=== PATIENT | female | born 2000 ===

== ENCOUNTER 2024-01-06 10:21 | Inpatient (IN) ==
[2024-01-06] MEDS ORDERED: ACETAMINOPHEN 325 MG TAB PO PRN (10:58)
[2024-01-06] MEDS ORDERED: SODIUM CHLORIDE 0.65% NA SOLN 45 ML (OCEAN) PRN (10:58)
[2024-01-06] MEDS ORDERED: ALUMINUM/MAGNESIUM SUSP 30 ML UDC PO PRN (10:58)
[2024-01-06] MEDS ORDERED: BISMUTH SUBSALICYLATE 262 MG CHEW PO PRN (10:58)
[2024-01-06] MEDS ORDERED: MAGNESIUM HYDROXIDE SUSP 30 ML UDC PO PRN (10:58)
[2024-01-06] MEDS ORDERED: Patient's ALLERGY Info needs ENTERED SCH (11:15)
[2024-01-06] MEDS ORDERED: Patient's HEIGHT &/or WEIGHT Needed ONE (13:30)
--- NOTE | 2024-01-06 15:09 | History & Physical ---
Date of Service January 06, 2024 Impression / Recommendations Impression PAOLA PEREZ is a 23-year-old woman from [facility] who recently moved to [place] with her , has a history of MDD (2022) and possible OCD, and was admitted on 01/06/24 12:47 on a 201 voluntary commitment for worsening depression with difficulty functioning (poor sleep and appetite), anxiety with panic attacks and SI feeling unable to remain safe without constant supervision from her . Diagnostically consistent with major depressive disorder and RETA with panic attacks in the setting of recent move with limited support, little daily structure, and questioning her purpose and where her sense of meaning will come from if she doesn't pursue academic studies given visa limitations for starting a career. Discussed medication treatment options in detail. Discussed risks, benefits and alternatives. Patient would like to start and consented to sertraline for MDD/RETA, mirtazapine for RETA/MDD and abilify for depression augmentation. Reviewed side effects including but not limited to: GI, NORRIS, sexual side effects, and counseled on black box warning of potential for emergence of or increased SI and need to let staff know should this occur or should they feel unsafe; sedation/weight gain; movement (TD, NMS), cardiac (QTc prolongation), and metabolic (stroke, insulin resistance) and necessity for fasting lipid and glucose labwork and AIMS done with score of 0 with abigertrudisy. MNPR-jehovah's witness need for hijab, significant anxiety Overall I spent a total of 75 minutes for this admission including review of chart records, review of labwork, direct evaluation of the patient, counseling the patient, ordering medication, risk assessment, discussion with the psychiatric liason RN and documentation in the electronic health record. (1) MDD (major depressive disorder), recurrent episode, severe: (2) Depression with suicidal ideation: (3) Generalized anxiety disorder with panic attacks: (4) Insomnia: (5) Decreased appetite: Plan 01/06/2024: The patient was admitted to the [facility] ([facility]) on q15 min checks (behavioral with suicide precautions) for safety. The patient will participate in group, recreational, and milieu therapies and will be offered additional individual and family sessions as clinically appropriate. -start sertraline 50mg daily -start mirtazapine 15mg HS -start abilify 2.5mg daily -Fasting lipid panel and HbA1c, Vit D, Vit B12 in the AM -therapy and outpatient psychiatry referrals -Discussed options for increased sense of social connection and meaning such as volunteer work vs involvement with a local jehovah's witness organization Inventory Assets Strengths: supportive relationships, willing to get treatment Needs: safety and stabilization, medication adjustment, additional coping skills, increased outpatient services Suicide Risk Level Suicide Risk Level: High-Moderate (q15 min suicide checks) (worsened depression, anxiety with panic attacks and SI prior to admission but denies SI in the hospital, feels safe in the hospital and feels able to ask for support) Risk Factors Assessment Male: No : No Do You Have Access To A Gun?: No Health Problems: No Mental Health Diagnoses: Yes Substance Use Disorders: No Previous Attempt: No Family History of Suicide: No Previous Psychiatric Hospitalization: No Hopelessness: Yes Protective Factors Assessment Sabianism Beliefs: Yes : Yes Responsible for Young Children: No Employed: No Stable Relationships: Yes Supportive Family: Yes (but live internationally, is her only local s upport) Psychiatric History Identifying Data PAOLA PEREZ is a 23-year-old woman from [facility] who recently moved to [place] with her , has a history of MDD (2022) and possible OCD, and was admitted on 01/06/24 12:47 on a 201 voluntary commitment for worsening depression with difficulty functioning (poor sleep and appetite) and SI feeling unable to remain safe without constant supervision from her . Chief Complaint "I want someone to end this pain immediately, I don't know how to calm myself" History of Present Illness She presents for psychiatric admission for worsening depression, anxiety with panic attacks and SI in the context of multiple psychosocial stressors including moving to the with her and being away from her supports and not being able to work due to her visa status. 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 Notes that her parents and siblings are all in very high achieving academic and medicine roles. She has wondered about volunteer opportunities, has not engaged with any local mosques. Reports feeling like "I just want to stay sedated all the day, I don't want to think of anything" and describes feeling like "I'm feeling very agitated, one moment I'm thinking I'll go with this decision and then the next minute I'm thinking there's something other I should do". She reports feeling very conflicted about what to do as she wants to return home to [facility] but also cannot leave her in the [place] as he is a huge support for her and knows it's not a feasible option for him to move back with her. She describes depressive symptoms over the last few weeks since the start of December including "not wanting to exist", ruminating thoughts, lack of concentration "I can't even concentrate on my prayer", anhedonia "I don't want to do anything", decreased motivation, helplessness, hopelessness "I don't see how things will get better from here", decreased energy, decreased appetite, and decreased sleep only getting a few hours per night, very restless but spends most of her day in bed. SI started suddenly "overnight, everything deteriorated". Had thought of wanting to use a knife to kill herself but states this is against her orthodoxy so this causing a lot of distress. She notes that "if other people kill me then it would be better for me". She also endorses symptoms of anxiety including generalized worries, shakiness, easily overwhelmed and panic attacks daily over the last week. Feels she has only been coping this week because her has been caring for her since he doesn't have classes this week due to the holiday schedule. She is not currently prescribed any psychiatric medications. Psychiatric ROS notable for no current nor history of symptoms of jeremías, psychosis, self-harm, eating disorder. History of possible OCD. Past Psychiatric History Current Psychiatric Diagnosis: major depressive disorder Outpatient Services: none Previous Psych Admissions: none Do You Have Access To A Gun?: No History of Previous Suicide Attempt: No Past Medication Trials: sertraline 100mg (helpful) mirtazapine 15mg HS (helped her "sleep better") Seroquel (unknown dose) at HS Past Head Trauma/Neuro History History of Concussion/Seizure: No Allergies Allergy/AdvReac Type Severity Reaction Status Date / Time No Known Allergies Allergy Unverified 01/06/24 14:39 Family History Family History of: Depression and Bipolar Family Mental Health History Comment: maternal aunt Alcohol History Hx of Alcohol Use Over the Past 12 Months: No AUDIT Total Score: 0 Smoking Use Have You Smoked or Used Tobacco Products in the Last 30 Days: No Smoking Status: Never smoker Substance History Hx of Prescription Med Misuse Over the Past 12 Months: No Hx of Over the Counter Med Misuse Over the Past 12 Months: No Hx of Inhalent Misuse Over the Past 12 Months: No Hx of Organic Substance Use Over the Past 12 Months: No Hx of Illegal Substances/Street Drug Use Over Past 12 Months: No Personal History Highest Grade Completed: College (electrical superintendent) Employment Status: Unemployed Marital Status: Number Of Children: none Beliefs That Will Affect Care: Sabianism Current Legal Problems: No Hx Legal Problems: No Patient History Social History Smoking Status: Never smoker Preferred Language: Macedonian Communication Ability: Effective Podiatric Surgeon Required: No Beliefs That Will Affect Care: Sabianism Sabianism Beliefs: pray 5 times a day Feels Safe at Home: No Gender Identity: Female Assistive Devices: Glasses Review of Systems Review of Systems: All systems reviewed & are unremarkable except as noted in HPI & below (nasal pain since wisdom tooth surgery in August 2023) Physical Exam Psychiatric: Orientation: alert and oriented x 3 Apperance: appropriately dressed and appropriately groomed Eye Contact: good eye contact Motor Behavior: no abnormal motor movements Speech: normal rate/rhythm/volume of speech Affect: + depressed affect and + anxious affect Mood: + depressed mood and + anxious mood Thought Process: goal directed thought process Thought Content: reality based without delusions Suicidal Thoughts: denies suicidal plan and denies suicidal intent; + reports suicidal thoughts (intermittent ) Homicidal Thoughts: denies homicidal thoughts H allucinations: no auditory hallucinations and no visual hallucinations Cognition: recent memory grossly intact, remote memory grossly intact, attention grossly intact and language grossly intact Estimated Intelligence: consistent with education level Insight: + fair insight Judgment: + limited judgement Vital Signs (Past 24 Hours): Last Vital Signs Temp 36.3 C L 01/06/24 13:17 Pulse 105 H 01/06/24 13:17 Resp 16 01/06/24 13:17 BP 107/74 01/06/24 13:17 Pulse Ox 99 01/06/24 13:17 O2 Del Method Room Air 01/06/24 13:17 Exam Statement: A physical exam was performed in the [facility] ED by Dr. Fawad Dinh for the purposes of medical clearance. I accept that physical as correct and adequate for the purposes of the inpatient physical exam. Results & Data ([facility]) Current Inpatient Medications Current Inpatient Medications: Current Inpatient Medications Acetaminophen (Acetaminophen 325 Mg Tab) 650 mg PO Q4H PRN PRN Reason: Headache or Minor Fever Stop: 02/05/24 10:57 Al Hydrox/Mg Hydrox/Simethicone (Aluminum/Magnesium Susp 30 Ml Udc) 30 ml PO Q4H PRN PRN Reason: GI Upset Stop: 02/05/24 10:57 Bismuth Subsalicylate (Bismuth Subsalicylate 262 Mg Chew) 2 tab PO Q30M PRN PRN Reason: Loose Stool/Diarrhea Stop: 02/05/24 10:57 Folic Acid (Folic Acid 1 Mg Tab) 1 mg PO QAM JAKE Stop: 02/06/24 08:59 Hydroxyzine HCl (Hydroxyzine Hcl 25 Mg Tab) 50 mg PO HSZ PRN PRN Reason: Insomnia Stop: 02/05/24 10:57 Hydroxyzine HCl (Hydroxyzine Hcl 25 Mg Tab) 25 mg PO Q4H PRN PRN Reason: Anxiety Stop: 02/05/24 10:57 Magnesium Hydroxide (Magnesium Hydroxide Susp 30 Ml Udc) 30 ml PO DAILY PRN PRN Reason: Constipation Stop: 02/05/24 10:57 Sodium Chloride (Sodium Chloride 0.65% Na Soln 45 Ml ([place])) 1 - 2 sprays NA PRN PRN PRN Reason: Nasal Dryness/Congestion Stop: 02/05/24 10:57
[2024-01-06] MEDS: SERTRALINE HCL 50 MG TABLET PO SCH (17:31)
[2024-01-06] MEDS: ARIPiprazole 5 MG TAB PO SCH (17:48)
[2024-01-06] MEDS: MIRTAZAPINE TAB 15 MG TAB PO SCH (21:14)
[2024-01-06] MEDS: hydrOXYzine HCl 25 MG TAB PO PRN (21:14)
--- NOTE | 2024-01-07 08:37 | Psychiatric Progress Note ---
Date of Service January 07, 2024 Impression / Recommendations Impression PAOLA PEREZ is a 23-year-old woman from [facility] who recently moved to [place] with her , has a history of MDD (2022) and possible OCD, and was admitted on 01/06/24 12:47 on a 201 voluntary commitment for worsening depression with difficulty functioning (poor sleep and appetite), anxiety with panic attacks and SI feeling unable to remain safe without constant supervision from her . Diagnostically consistent with major depressive disorder and RETA with panic attacks in the setting of recent move with limited support, little daily structure, and questioning her purpose and where her sense of meaning will come from if she doesn't pursue academic studies given visa limitations for starting a career. A: Ongoing depression and anxiety with SI. Tolerating medications so far, will titrate abilify to continue to target her symptoms of depression and ruminative worries. Fasting lipid panel, HbA1c, Vit B12 reviewed and all normal, Vit D level was low, she consents to starting po supplementation. Continuing to focus on ways she can feel more in control of her circumstances and build support and structure to her day. MNPR-confucianist need for hijab, significant anxiety Overall, I spent a total of 35 minutes on this case including meeting with the patient, reviewing the chart, nursing report, multidisciplinary team meeting, orders, and documentation. (1) MDD (major depressive disorder), recurrent episode, severe: (2) Depression with suicidal ideation: (3) Generalized anxiety disorder with panic attacks: (4) Insomnia: (5) Decreased appetite: Plan 01/07/2024: -Increase abilify to 5mg daily -Start Vit D3 po 25 mcg daily 01/06/2024: The patient was admitted to the [facility] ([facility]) on q15 min checks (behavioral with suicide precautions) for safety. The patient will participate in group, recreational, and milieu therapies and will be offered additional individual and family sessions as clinically appropriate. -start sertraline 50mg daily -start mirtazapine 15mg HS -start abilify 2.5mg daily -Fasting lipid panel and HbA1c, Vit D, Vit B12 in the AM -therapy and outpatient psychiatry referrals -Discussed options for increased sense of social connection and meaning such as volunteer work vs involvement with a local confucianist organization Inventory Assets Strengths: supportive relationships, willing to get treatment Needs: safety and stabilization, medication adjustment, additional coping skills, increased outpatient services Suicide Risk Level Suicide Risk Level: High-Moderate (q15 min suicide checks) (worsened depression, anxiety with panic attacks and SI prior to admission but denies SI in the hospital, feels safe in the hospital and feels able to ask for support) Risk Factors Assessment Male: No : No Do You Have Access To A Gun?: No (n/a) Health Problems: No Mental Health Diagnoses: Yes Substance Use Disorders: No Previous Attempt: No Family History of Suicide: No Previous Psychiatric Hospitalization: No Hopelessness: Yes Protective Factors Assessment Voodoo Beliefs: Yes : Yes Responsible for Young Children: No Employed: No Stable Relationships: Yes Supportive Family: Yes (but live internationally, is her only local support) Interval History Identifying Information PAOLA PEREZ is a 23-year-old woman from [facility] who recently moved to [place] with her , has a history of MDD (2022) and possible OCD, and was admitted on 01/06/24 12:47 on a 201 voluntary commitment for worsening depression with difficulty functioning (poor sleep and appetite) and SI feeling unable to remain safe without constant supervision from her . Chief Complaint "The mental agitation has come down a bit". Review of Systems Sleep Information Total Hours of Sleep: 4.5 Sleep Comments: Vistaril Meal Information Percent Meal Consumed - Dinner: 100 Subjective Subjective Patient was seen & assessed and interval progress reviewed with treatment team nursing and social work. Attending groups. Utilized prn Vistaril. Poor sleep. Rated mood last evening as "hopeless and stuck". Today lying in bed midday, reports feeling like she has a fever and chills. Vital signs assessed and normal, offered acetaminophen which she declines. Reflects that she is lying in bed in hopes if sleeping to avoid her thoughts and feeling stuck about life decisions to be made. Spent time with [facility] counselor discussing ways to move forward from her sense of feeling paralyzed by indecision. She denies medication side effects, feels so far she is noticing a slight lessening of mental agitation and worry but still depressed. Has intermittent SI. Thought reported to sleep only 4.5 hours she feels she slept well compared to recent sleep prior to admission. She's agreeable to abilify titration while awaiting effects from sertraline over the coming weeks. Physical Exam Psychiatric Orientation: alert and oriented x 3 Apperance: appropriately dressed (lying in bed) Eye Contact: + fair eye contact Motor Behavior: no abnormal motor movements Speech: normal rate/rhythm/volume of speech Affect: + depressed affect and + anxious affect Mood: + depressed mood and + anxious mood Thought Process: goal directed thought process Thought Content: reality based without delusions Suicidal Thoughts: denies suicidal plan (none for hospital) and denies suicidal intent; + reports suicidal thoughts (intermittent ) Homicidal Thoughts: denies homicidal thoughts Hallucinations: no auditory hallucinations and no visual hallucinations Cognition: recent memory grossly intact, remote memory grossly intact, attention grossly intact and language grossly intact Estimated Intelligence: consistent with education level Insight: + fair insight Judgment: + limited judgement Vital Signs (Past 24 Hours) Last Vital Signs Temp 36.3 C L 01/06/24 13:17 Pulse 66 01/07/24 06:50 Resp 16 01/07/24 06:50 BP 94/69 L 01/07/24 06:50 Pulse Ox 96 01/07/24 06:50 O2 Del Method Room Air 01/07/24 06:50 Results & Data ([facility]) Laboratory Results Laboratory Results - last 24 hr 01/07/24 07:54 Estimat Average Glucose Pending Hemoglobin A1c Pending Triglycerides Pending Cholesterol Pending VLDL Cholesterol, Calc Pending HDL Cholesterol Pending Cholesterol/HDL Ratio Pending Vitamin B12 Pending 25-OH Vitamin D Total Pending Current Inpatient Medications Current Inpatient Medications: Current Inpatient Medications Acetaminophen (Acetaminophen 325 Mg Tab) 650 mg PO Q4H PRN PRN Reason: Headache or Minor Fever Stop: 02/05/24 10:57 Al Hydrox/Mg Hydrox/Simethicone (Aluminum/Magnesium Susp 30 Ml Udc) 30 ml PO Q4H PRN PRN Reason: GI Upset Stop: 02/05/24 10:57 Aripiprazole (Aripiprazole 5 Mg Tab) 2.5 mg PO QAM JAKE Stop: 02/05/24 15:59 Last Admin: 01/06/24 17:48 Dose: 2.5 mg Bismuth Subsalicylate (Bismuth Subsalicylate 262 Mg Chew) 2 tab PO Q30M PRN PRN Reason: Loose Stool/Diarrhea Stop: 02/05/24 10:57 Folic Acid (Folic Acid 1 Mg Tab) 5 mg PO QAM JAKE Stop: 02/06/24 08:59 Hydroxyzine HCl (Hydroxyzine Hcl 25 Mg Tab) 50 mg PO HSZ PRN PRN Reason: Insomnia Stop: 02/05/24 10:57 Last Admin: 01/06/24 21:14 Dose: 50 mg Hydroxyzine HCl (Hydroxyzine Hcl 25 Mg Tab) 25 mg PO Q4H PRN PRN Reason: Anxiety Stop: 02/05/24 10:57 Magnesium Hydroxide (Magnesium Hydroxide Susp 30 Ml Udc) 30 ml PO DAILY PRN PRN Reason: Constipation Stop: 02/05/24 10:57 Mirtazapine (Mirtazapine Tab 15 Mg Tab) 15 mg PO HS JAKE Stop: 02/05/24 21:59 Last Admin: 01/06/24 21:14 Dose: 15 mg Sertraline HCl (Sertraline Hcl 50 Mg Tablet) 50 mg PO QAM JAKE Stop: 02/05/24 15:59 Last Admin: 01/06/24 17:31 Dose: 50 mg Sodium Chloride (Sodium Chloride 0.65% Na Soln 45 Ml ([place])) 1 - 2 sprays NA PRN PRN PRN Reason: Nasal Dryness/Congestion Stop: 02/05/24 10:57 Mental Health & Subst Abuse Tx Psychiatrist Time of Appointment with Psychiatrist: n/a Therapist Name of Therapist: n/a Time of Therapist Appointment: n/a Lens Inserter Name of Lens Inserter: n/a Time of Appointment with Lens Inserter: n/a Post Discharge Appointments Primary Care Physician Name Of Family Doctor/PCP: n/a Time of Appointment with PCP: n/a
[2024-01-07 08:41] LABS: Chol HDL Ratio 3.3 (0-5)
[2024-01-07] MEDS ORDERED: FOLIC ACID 1 MG TAB PO SCH (09:00)
[2024-01-07] MEDS: FOLIC ACID 1 MG TAB PO SCH (09:55)
[2024-01-07 09:56] LABS: Estimated Average Glucose 111 mg/dl; Hemoglobin A1C 5.5 % (4.5-5.6)
[2024-01-07] MEDS: hydrOXYzine HCl 25 MG TAB PO PRN (14:41)
--- NOTE | 2024-01-08 08:40 | Psychiatric Progress Note ---
Date of Service January 08, 2024 Impression / Recommendations Impression PAOLA PEREZ is a 23-year-old woman from [facility] who recently moved to [place] with her , has a history of MDD (2022) and possible OCD, and was admitted on 01/06/24 12:47 on a 201 voluntary commitment for worsening depression with difficulty functioning (poor sleep and appetite), anxiety with panic attacks and SI feeling unable to remain safe without constant supervision from her . Diagnostically consistent with major depressive disorder and RETA with panic attacks in the setting of recent move with limited support, little daily structure, and questioning her purpose and where her sense of meaning will come from if she doesn't pursue academic studies given visa limitations for starting a career. A: Ongoing depression and anxiety but some improvement in engagement today, less help seeking/help rejecting. She was receptive to discussion of utilizing ACT coping skills to help with indecision and to shift her focus to ways of adding support, structure, meaning and opportunities to finding achievement to her day to day routine. Reviewed this also with her during support meeting, reviewed medications, reviewed ways he can support her and answered his questions. She is hopeful to discharge soon but doesn't feel ready yet. MNPR-pentecostal need for hijab, significant anxiety Overall, I spent a total of 45 minutes on this case including meeting with the patient, reviewing the chart, nursing report, multidisciplinary team meeting, orders, and documentation and speaking with her for further collateral and offering counseling and treatment recommendations. (1) MDD (major depressive disorder), recurrent episode, severe: (2) Depression with suicidal ideation: (3) Generalized anxiety disorder with panic attacks: (4) Insomnia: (5) Decreased appetite: Plan 01/08/2024: -Increase mirtazapine to 30mg HS to further target insomnia. 01/07/2024: -Increase abilify to 5mg daily -Start Vit D3 po 25 mcg daily 01/06/2024: The patient was admitted to the [facility] ([facility] mental health unit) on q15 min checks (behavioral with suicide precautions) for safety. The patient will participate in group, recreational, and milieu therapies and will be offered additional individual and family sessions as clinically appropriate. -start sertraline 50mg daily -start mirtazapine 15mg HS -start abilify 2.5mg daily -Fasting lipid panel and HbA1c, Vit D, Vit B12 in the AM -therapy and outpatient psychiatry referrals -Discussed options for increased sense of social connection and meaning such as volunteer work vs involvement with a local pentecostal organization Inventory Assets Strengths: supportive relationships, willing to get treatment Needs: safety and stabilization, medication adjustment, additional coping skills, increased outpatient services Suicide Risk Level Suicide Risk Level: Moderate (q15 min suicide checks) (worsened depression, anxiety with panic attacks and SI prior to admission but mood improving a little bit, SI lessening, feels safe in the hospital and feels able to ask for support) Suicide Risk Level Comments: Risk Factors Assessment Male: No : No Do You Have Access To A Gun?: No (n/a) Health Problems: No Mental Health Diagnoses: Yes Substance Use Disorders: No Previous Attempt: No Family History of Suicide: No Previous Psychiatric Hospitalization: No Hopelessness: Yes Protective Factors Assessment Hinduism Beliefs: Yes : Yes Responsible for Young Children: No Employed: No Stable Relationships: Yes Supportive Family: Yes (but live internationally, is her only local support) Interval History Identifying Information PAOLA PEREZ is a 23-year-old woman from [facility] who recently moved to [place] with her , has a history of MDD (2022) and possible OCD, and was admitted on 01/06/24 12:47 on a 201 voluntary commitment for worsening depression with difficulty functioning (poor sleep and appetite) and SI feeling unable to remain safe without constant supervision from her . Chief Complaint "I feel like sleeping all day to escape my thoughts". Review of Systems Sleep Information Total Hours of Sleep: 4.75 Sleep Comments: Vistaril Meal Information Percent Meal Consumed - Breakfast: 50 Percent Meal Consumed - Lunch: 0 Percent Meal Consumed - Dinner: 0 Subjective Subjective Patient was seen & assessed and interval progress reviewed with treatment team nursing and social work. Declined prompts to join meals. Isolative and withdrawn to her room. Had a good visit with her . Declined most groups. Today able to engage more. Discussed ACT strategies which she was receptive to. Finding the medications helpful, feels her sleep is improving. Still wishes she could sleep all day to avoid feeling anxious about what decision to make re: returning to [facility] to live with relatives vs remaining locally with her . Notes that "whenever I'm awake my brain feels overwhelmed". Processed ways to cope with this, she agrees ACT could help and that she needs to find more activities to remain busy as her symptoms worsen when she is alone all day without anything to do. She is finding prn Vistaril helpful. Endorses very brief episode of SI today "only a quick thought crossed my mind, none after that". Physical Exam Psychiatric Orientation: alert and oriented x 3 Apperance: appropriately dressed and appropriately groomed Eye Contact: good eye contact Motor Behavior: no abnormal motor movements Speech: normal rate/rhythm/volume of speech Affect: + depressed affect and + anxious affect Mood: + depressed mood and + anxious mood Thought Process: goal directed thought process Thought Content: reality based without delusions Suicidal Thoughts: denies suicidal plan and denies suicidal intent; + reports suicidal thoughts (once today, lessening ) Homicidal Thoughts: denies homicidal thoughts Hallucinations: no auditory hallucinations and no visual hallucinations Cognition: recent memory grossly intact, remote memory grossly intact, attention grossly intact and language grossly intact Estimated Intelligence: consistent with education level Insight: + fair insight Judgment: + limited judgement Vital Signs (Past 24 Hours) Last Vital Signs Temp 36.3 C L 01/06/24 13:17 Pulse 96 H 01/08/24 06:47 Resp 16 01/08/24 06:46 BP 105/75 01/08/24 06:47 Pulse Ox 97 01/08/24 06:47 O2 Del Method Room Air 01/08/24 06:47 Results & Data ([facility]) Laboratory Results Laboratory Results - last 24 hr 01/07/24 07:54 Estimat Average Glucose 111 Hemoglobin A1c 5.5 Triglycerides 62 Cholesterol 140 LDL Cholesterol, Calc 85 VLDL Cholesterol, Calc 12 HDL Cholesterol 43 Cholesterol/HDL Ratio 3.3 Vitamin B12 667 25-OH Vitamin D Total 13.6 L Current Inpatient Medications Current Inpatient Medications: Current Inpatient Medications Acetaminophen (Acetaminophen 325 Mg Tab) 650 mg PO Q4H PRN PRN Reason: Headache or Minor Fever Stop: 02/05/24 10:57 Al Hydrox/Mg Hydrox/Simethicone (Aluminum/Magnesium Susp 30 Ml Udc) 30 ml PO Q4H PRN PRN Reason: GI Upset Stop: 02/05/24 10:57 Aripiprazole (Aripiprazole 5 Mg Tab) 5 mg PO QAM JAKE Stop: 02/07/24 08:59 Bismuth Subsalicylate (Bismuth Subsalicylate 262 Mg Chew) 2 tab PO Q30M PRN PRN Reason: Loose Stool/Diarrhea Stop: 02/05/24 10:57 Folic Acid (Folic Acid 1 Mg Tab) 5 mg PO QAM JAKE Stop: 02/06/24 08:59 Last Admin: 01/07/24 09:55 Dose: 5 mg Hydroxyzine HCl (Hydroxyzine Hcl 25 Mg Tab) 50 mg PO HSZ PRN PRN Reason: Insomnia Stop: 02/05/24 10:57 Last Admin: 01/07/24 22:05 Dose: 50 mg Hydroxyzine HCl (Hydroxyzine Hcl 25 Mg Tab) 25 mg PO Q4H PRN PRN Reason: Anxiety Stop: 02/05/24 10:57 Last Admin: 01/07/24 14:41 Dose: 25 mg Magnesium Hydroxide (Magnesium Hydroxide Susp 30 Ml Udc) 30 ml PO DAILY PRN PRN Reason: Constipation Stop: 02/05/24 10:57 Mirtazapine (Mirtazapine Tab 15 Mg Tab) 15 mg PO HS JAKE Stop: 02/05/24 21:59 Last Admin: 01/07/24 22:05 Dose: 15 mg Sertraline HCl (Sertraline Hcl 50 Mg Tablet) 50 mg PO QAM JAKE Stop: 02/05/24 15:59 Last Admin: 01/07/24 09:55 Dose: 50 mg Sodium Chloride (Sodium Chloride 0.65% Na Soln 45 Ml ([place])) 1 - 2 sprays NA PRN PRN PRN Reason: Nasal Dryness/Congestion Stop: 02/05/24 10:57 Vitamin D (Cholecalciferol 25 Mcg (1000 Units) Tab) 25 mcg PO QAM JAKE Stop: 02/07/24 08:59 Mental Health & Subst Abuse Tx Psychiatrist Name of Psychiatrist: Emilia Bartlett Psychiatrist's Date Of Appointment With Psychiatric Provider: 01/13/2024 Time of Appointment with Psychiatrist: 9:30AM Psychiatric Appointment Comment: [facility] [address], [place]. Call 24hr ahead if need resched Therapist Name of Therapist: [facility] Therapist's Date of Therapist Appointment: 01/16/24 () Time of Therapist Appointment: 3PM Therapy Appointment Comment: Virtual appt - link will be sent to your email County Judge Name of County Judge: n/a Time of Appointment with County Judge: n/a Post Discharge Appointments Primary Care Physician Name Of Family Doctor/PCP: n/a Time of Appointment with PCP: n/a
[2024-01-08] MEDS: ARIPiprazole 5 MG TAB PO SCH (09:11)
[2024-01-08] MEDS: CHOLECALCIFEROL 25 MCG (1000 UNITS) TAB PO SCH (09:11)
[2024-01-08] MEDS: INFLUENZA VACC TS2024-25(6m+)/PF (IIV3) 0.5mL Syr IM ONE (10:48)
[2024-01-08] MEDS: MIRTAZAPINE TAB 15 MG TAB PO SCH (21:10)
--- NOTE | 2024-01-09 11:33 | Discharge Summary ---
Date of Service January 09, 2024 History of Present Illness She presents for psychiatric admission for worsening depression, anxiety with panic attacks and SI in the context of multiple psychosocial stressors including [place] with her and being away from her supports and not being able to work due to her visa status. 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 Notes that her parents and siblings are all in very high achieving academic and medicine roles. She has wondered about volunteer opportunities, has not engaged with any local mosques. Reports feeling like "I just want to stay sedated all the day, I don't want to think of anything" and describes feeling like "I'm feeling very agitated, one moment I'm thinking I'll go with this decision and then the next minute I'm thinking there's something other I should do". She reports feeling very conflicted about what to do as she wants to return home to [facility] but also cannot leave her in the [place] as he is a huge support for her and knows it's not a feasible option for him to move back with her. She describes depressive symptoms over the last few weeks since the start of December including "not wanting to exist", ruminating thoughts, lack of concentration "I can't even concentrate on my prayer", anhedonia "I don't want to do anything", decreased motivation, helplessness, hopelessness "I don't see how things will get better from here", decreased energy, decreased appetite, and decreased sleep only getting a few hours per night, very restless but spends most of her day in bed. SI started suddenly "overnight, everything deteriorated". Had thought of wanting to use a knife to kill herself but states this is against her adventist so this causing a lot of distress. She notes that "if other people kill me then it would be better for me". She also endorses symptoms of anxiety including generalized worries, shakiness, easily overwhelmed and panic attacks daily over the last week. Feels she has only been coping this week because her has been caring for her since he doesn't have classes this week due to the holiday schedule. She is not currently prescribed any psychiatric medications. Psychiatric ROS notable for no current nor history of symptoms of jeremías, psychosis, self-harm, eating disorder. History of possible OCD. Physical Exam Vital Signs (Past 24 Hours) Last Vital Signs Temp 37 C 01/09/24 06:50 Pulse 87 01/09/24 06:51 Resp 16 01/09/24 06:50 BP 98/67 L 01/09/24 06:51 Pulse Ox 97 01/08/24 06:47 O2 Del Method Room Air 01/08/24 06:47 Principal Diagnosis Major Depressive Disorder with anxious distress Psychiatric Data See daily stay summary. In short, patient was engaged with the social/therapeutic milieu of the unit, safety was maintained and the patient was cooperative with care. Medication changes included initiation of sertraline for depression/anxiety, abilify 5mg qd for depression augmentation while awaiting full SSRI effect, mirtazapine for depression/anxiety, Vistaril 25mg daily prn for anxiety/insomnia and Vitamin D supplementation due to deficiency and they tolerated this well. Baseline labs of fasting glucose, fasting lipid profile, and weight were preformed (see labwork results below). Recommend repeat weight in one month. Recommend repeat fasting glucose, HbA1c and fasting lipid profile every 12 weeks and then annually. If symptoms arise recommend checking BP, EKG, prolactin level as clinically indicated or relevant. A support session was held and safety plan was completed prior to discharge. They participated in safety planning and in discussions about ways to seek support and recognizing warning signs and utilizing coping skills. Reviewed ways to have their safety plan and contacts easily available should thoughts of SI re-emerge in the future. Reviewed importance of seeking emergency care should SI intensify, worsen or should they feel unsafe in the future which they agree to do. On the day of discharge they stated their mood was "feeling better" and remained future-oriented including spending time with her and with her mother who will be visiting later in the week and staying for about a month and engaging in aftercare appointments for psychiatry and therapy. Day of Discharge Assessment Today the patient voices readiness for discharge. They note improvement in mood and anxiety. They deny thoughts of harm to self or others. Thoughts are organized and they are clinically improved from admission. There is no evidence of psychosis. They improved in the hospital with support and medication adjustments. They agree to take medications as prescribed and keep follow-up appointments. At the time of the discharge they are deemed to be stable and appropriate for outpatient level of care. They are not deemed to be at imminent risk of harm to self or others. They are aware of emergency and crisis services. Knows to call 911 or go to nearest emergency care center if in a crisis which cannot be handled as an outpatient. Suicide risk assessment: Acute risk is low given improvement in mood and denial of SI, lack of access to lethal means, improvement in sleep, hopefulness and lessening of anxiety and improvement in appetite. Chronic risk is moderate given some non-modifiable risk factors: psychiatric co-morbid diagnoses, emotional reactivity, limited social support, limited daily structure but also with protective factors including good family support, sense of responsibility to family and social supports, outpatient care in place, positive coping skills, positive problem solving, willingness to engage with treatment and self-observation. Counseled on ways to reduce acute and chronic risk including engaging with outpatient providers, using safety plan if needed, utilizing supports, taking medication, and using coping skills. Modifiable risk factors of SI, anxiety, insomnia and depression were addressed during hospitalization through development of new coping skills, support meeting, safety planning, and medication adjustments and discussion of importance of building structure and ways to increase meaning, social connection and sense of achievement/intellectual engagement. Discharge physical exam: See admission H&P, MSE per above and day of discharge summary. Overall, I spent a total of 35 minutes on this case including meeting with the patient, reviewing the chart, nursing report, multidisciplinary team meeting, discharge orders, anticipatory planning, safety planning, risk assessment and documentation. Transition of Care Transition Of Care Record: was reviewed with the patient Advance Directives Advance Directives Information Provided: Yes Advance Directives: No Mental Health Advance Directive: No Advance Directives on File: No Living Will: No Power of Lead Dental Assistant: No Advance Directives Reason:: Declines as Mental Health Visit. Suicide Risk Level Suicide Risk Level Comments: Acute risk is low, see assessment above Risk Factors Assessment Male: No : No Do You Have Access To A Gun?: No Health Problems: No Mental Health Diagnoses: Yes Substance Use Disorders: No Previous Attempt: No Family History of Suicide: No Previous Psychiatric Hospitalization: No Hopelessness: No Protective Factors Assessment Latter Day Beliefs: Yes : Yes Responsible for Young Children: No Employed: No Stable Relationships: Yes Supportive Family: Yes Discharge Data Lab Results 01/07/24 07:54 Estimat Average Glucose 111 Hemoglobin A1c 5.5 Triglycerides 62 Cholesterol 140 LDL Cholesterol, Calc 85 VLDL Cholesterol, Calc 12 HDL Cholesterol 43 Cholesterol/HDL Ratio 3.3 Vitamin B12 667 25-OH Vitamin D Total 13.6 L Hospital Course (1) MDD (major depressive disorder), recurrent episode, severe: (2) Depression with suicidal ideation: (3) Generalized anxiety disorder with panic attacks: (4) Insomnia: (5) Decreased appetite: Plan 01/09/2024: Sleep has improved, mood improved, engaging in more groups, she requests and desires discharge today. Safe and ready to go. 01/08/2024: -Increase mirtazapine to 30mg HS to further target insomnia. 01/07/2024: -Increase abilify to 5mg daily -Start Vit D3 po 25 mcg daily 01/06/2024: The patient was admitted to the [facility] ([facility] mental health unit) on q15 min checks (behavioral with suicide precautions) for safety. The patient will participate in group, recreational, and milieu therapies and will be offered additional individual and family sessions as clinically appropriate. -start sertraline 50mg daily -start mirtazapine 15mg HS -start abilify 2.5mg daily -Fasting lipid panel and HbA1c, Vit D, Vit B12 in the AM -therapy and outpatient psychiatry referrals -Discussed options for increased sense of social connection and meaning such as volunteer work vs involvement with a local christianity organization Mental Health & Subst Abuse Tx Psychiatrist Name of Psychiatrist: Emilia Bartlett Psychiatrist's Date Of Appointment With Psychiatric Provider: 01/13/2024 Time of Appointment with Psychiatrist: 9:30AM Psychiatric Appointment Comment: [address] [facility] [address], [place]. Call 24hr ahead if need resched Therapist Name of Therapist: [facility] Therapist's Date of Therapist Appointment: 01/16/24 () Time of Therapist Appointment: 3PM Therapy Appointment Comment: Virtual appt - link will be sent to your email Solar Sales Representative And Assessor Name of Solar Sales Representative And Assessor: n/a Time of Appointment with Solar Sales Representative And Assessor: n/a Post Discharge Appointments Primary Care Physician Name Of Family Doctor/PCP: n/a Time of Appointment with PCP: n/a Discharge Plan Discharge Items Patient Disposition: Home - Self-Care Reason For Visit: MAJOR DEPRESSIVE DISORDER Discharge Diagnosis: Major Depressive Disorder with anxious distress Activity: Resume your previous activity Non-emergency contact: Primary Care Provider, Psychiatrist and Therapist Call non-emergency contact if: you have any medication questions and your symptoms worsen Follow-up/Referrals: PCP,NO [Primary Care Provider] - Diet: Regular Addtl Attending Provider Instructions: SPECIAL CARE INSTRUCTIONS: 1. Follow through with your scheduled aftercare appointments. If unable to keep an appointment, please call to reschedule. 2. Take your medication only as prescribed. Medication should not be changed or stopped without the approval of your doctor. In the event of worsening symptoms or concerns about side effects, contact your doctor immediately. 3. Utilize new healthy coping skills, anger management skills, and stress management skills learned during your hospitalization. Journal feelings and process them with a support person. Identify stressors or situations that may result in relapse, deterioration or inappropriate behaviors and develop a plan to deal with those issues. 4. If your coping skills are ineffective and you are in crisis, contact your outpatient providers for direction. If unable to reach your providers, please call the [facility] CRISIS LINE AT , go to the [facility] walk-in center at [address], [address], [place], or go to the closest Emergency Room. 5. Avoid alcohol and un-prescribed drugs. 6. You have been provided with the Mental Health Advance Directives Pamphlet for your review. 7. Your condition is stable for discharge to outpatient level of care, but recovery is an ongoing process. Ifthoughts to harm yourself or others return, follow the safety plan developed during your stay. Planning for a safe return home includes securing weapons. Our treatment team recommends weaponsbe removed from the home until your outpatient provider reassesses your progress. In rare cases where the items themselvescannot be removed, guns and ammunitionshould be secured separatelyand keys stored by a reliable personoutside of the home. If you were admitted on an involuntary commitment, the police or other legal authorities may be involved in this process. AFTERCARE APPOINTMENTS: * Please call your insurance company prior to your scheduled appointment to c onfirm your aftercare providers are covered. Take your insurance information to your appointments. WHO TO CALL AND WHEN: Medical Emergencies: For questions or emergencies related to your hospital stay, please contact the Inpatient Behavioral Health Unit at [phone]. A tutoring clinician is on-call 03/09 for the Behavioral Health Unit for emergencies At any time you feel your situation is an emergency, you may also call 911 immediately. National Crisis hotline: 442 Pending Studies at Discharge: No Stand-Alone Forms: My [facility] Medications and DC Order Prescriptions: New sertraline 50 mg Tablet 50 mg PO QAM 30 Days Qty: 30 0RF cholecalciferol (vitamin D3) 25 mcg (1,000 unit) Capsule 25 mcg PO QAM 30 Days Qty: 30 0RF aripiprazole [Abilify] 5 mg Tablet 5 mg PO QAM 30 Days Qty: 30 0RF hydroxyzine HCl 25 mg Tablet 25 mg PO DAILY PRN (Reason: anxiety/insomnia) 30 Days Qty: 30 0RF mirtazapine 30 mg tablet 30 mg PO HS 30 Days Qty: 30 0RF folic acid 1 mg Tablet 5 mg PO QAM Qty: 1 0RF Discharge Orders: Discharge Order (Routine); Ordered 01/09/24 Ordered By: Gavi Garza Admission Data Admit Date/Time: 01/06/24 12:47 Attending Provider: Gavi Garza Admit Provider: Gavi Garza Primary Care Provider: PCP,NO Other Interventions: Discharge Summary Assessment (RN) Last Done: 01/09/24 11:31 Coding Level of Care Code 33405 D/C day mgmt > 30 min Diagnoses MDD (major depressive disorder), recurrent episode, severe F33.2 Depression with suicidal ideation F32.A; R45.851 Generalized anxiety disorder with panic attacks F41.1; F41.0 Insomnia G47.00 Decreased appetite R63.0
== END 2024-01-09 16:44 | disposition home or self-care (01) | DRG 885 ==
LOC: 3S 12:47